=== PATIENT | male | born 1975 | race American Indian/Alaskan Native ===

== ENCOUNTER 2018-07-03 09:33 | Observation (INO) | payer SELFPAY ==
[2018-07-03 10:10] VITALS: BMI 23.8
--- NOTE | 2018-07-03 11:09 | ED PDOC ---
Lower Extremity Pain/Injury Time Seen by Provider: 07/03/18 09:54 Chief Complaint (Nursing): Lower Extremity Problem/Injury Chief Complaint (Provider): Lower Extremity Problem/Injury History Per: Patient History/Exam Limitations: no limitations Onset/Duration Of Symptoms: Persistent (x1 week), Worse Since (today) Current Symptoms Are (Timing): Still Present Additional Complaint(s): 42 year old male presents to ED with complaint of right ankle and foot pain that radiates up his knee. Patient is observed with cast on right foot placed 1 week ago at [facility]. He states he was waiting to see a specialist for follow up prior to arrival but developed increased pain during prolonged standing, thus, prompting ED visit. Patient has been taking Ibuprofen for relief but did not take any medications today. Otherwise, he denies numbness, tingling sensation, or other bodily injuries. PCP: none provided Past Medical History Reviewed: Historical Data, Nursing Documentation, Vital Signs Vital Signs: Last Vital Signs Temp 98.8 F 07/03/18 10:07 Pulse 84 07/03/18 10:07 Resp 17 07/03/18 10:07 BP 104/73 07/03/18 10:07 Pulse Ox 99 07/03/18 10:07 - Medical History PMH: No Chronic Diseases, Fractures (right ankle) - Family History Family History: States: Unknown Family Hx - Immunization History Hx Tetanus Toxoid Vaccination: No Hx Influenza Vaccination: No Hx Pneumococcal Vaccination: No - Home Medications Home Medications: Ambulatory Orders Medication Instructions Recorded Ibuprofen [Motrin] 600 mg PO Q6 #25 tab 06/27/18 oxyCODONE/Acetaminophen [Percocet 1 tab PO Q6 #10 tab 06/27/18 5/325 mg Tab] - Allergies Allergies/Adverse Reactions: Allergies Allergy/AdvReac Type Severity Reaction Status Date / Time No Known Allergies Allergy Verified 05/12/18 13:25 Review of Systems ROS Statement: Except As Marked, All Systems Reviewed And Found Negative Musculoskeletal: Positive for: Foot Pain (right sided radiating to knee, throbbing) Neurological: Negative for: Numbness (or tingling) Physical Exam - Reviewed Nursing Documentation Reviewed: Yes Vital Signs Reviewed: Yes - Physical Exam Appears: Positive for: Non-toxic, No Acute Distress Head Exam: Positive for: ATRAUMATIC, NORMAL INSPECTION, NORMOCEPHALIC Skin: Positive for: Normal Color Eye Exam: Positive for: Normal appearance, EOMI, PERRL Neck: Positive for: Normal Cardiovascular/Chest: Positive for: Regular Rate, Rhythm, Chest Non Tender Respiratory: Positive for: Normal Breath Sounds. Negative for: Respiratory Distress Pulses-Radial (L): 1+ Pulses-Radial (R): 1+ Back: Positive for: Normal Inspection. Negative for: L CVA Tenderness, R CVA Tenderness, Vertebral Tenderness Extremity: Positive for: Other (swelling ankle and foot; able to wiggle toes; pain on movement of ankle) Neurologic/Psych: Positive for: Alert, Oriented. Negative for: Motor/Sensory Deficits, Aphasia - ECG O2 Sat by Pulse Oximetry: 99 (RA) Pulse Ox Interpretation: Normal - Radiology X-Ray: Interpreted by Me, Viewed By Me X-Ray Interpretation: Fracture - Progress ED Course And Treament: 1300: Podiatry saw pt. Want admitted. They will consider monitoring, surgery, and checking compartment pressures. Pt. stable. No numbness, tingles. 1327: Spoke with Dr. Ibarra. Will admit. Medical Decision Making Medical Decision Making: Time: 1011 Initial Plan: * Toradol 15mg IM * Podiatry consult Scribe Attestation: Documented by Dee Dee Sharpe, acting as a scribe for Estrada Quiros MD. Provider Scribe Attestation: All medical record entries made by the Scribe were at my direction and personally dictated by me. I have reviewed the chart and agree that the record accurately reflects my personal performance of the history, physical exam, medical decision making, and the department course for this patient. I have also personally directed, reviewed, and agree with the discharge instructions and disposition. Disposition - Clinical Impression Clinical Impression: Ankle fracture - Patient ED Disposition Is Patient to be Admitted: Yes Counseled Patient/Family Regarding: Studies Performed, Diagnosis - Disposition Disposition Time: 13:28 Condition: FAIR - Pt Status Changed To: Hospital Disposition Of: Observation - POA Present On Arrival: Falls Or Trauma
--- NOTE | 2018-07-03 11:55 | CP.PCM.CON ---
History of Present Illness - History of Present Illness History of Present Illness: Podiatry consult note for attending Dr. Gutiérrez: 42 years old male patient, with no significant PMH seen and evaluated in the ED complaining of right ankle fracture. Patient Right LE was in posterior splint. Patient states that Patient states that last Monday he had right ankle fracture. Patient states that he went to [facility] ED where he was seen, X-ray and CT done for him which shows fracture to his right ankle. He states that splint was applied to his right LE. Patient states that he was discharged from the ED to follow up with Dr. Gutiérrez at the podiatry clinic at [facility]. He states that he was instructed to stay non weight bearing to his right lower extremity and also to elevate his RLE and apply ice to the fracture site and use crutches for moving. Patient states that he put weight on his RLE f or several times. He states that he has pain 10/10 at the fracture site with numbness extending from the anterior ankle down to the foot. Patient denies any recent f/n/v/sob. PMH: none PSH: none Allergies: NKFDA Social Hx: Review of Systems - Review of Systems Review of Systems: As per HPI - Constitutional Constitutional: As Per HPI Past Patient History - Infectious Disease Hx of Infectious Diseases: None - Past Social History Smoking Status: Never Smoked - MUSCULOSKELETAL/RHEUMATOLOGICAL Hx Fractures: Yes (right ankle) - GASTROINTESTINAL Hx Gastrointestinal Disorders: No - GENITOURINARY/GYNECOLOGICAL Hx Genitourinary Disorders: No - PSYCHIATRIC Hx Psychophysiologic Disorder: No Hx Substance Use: No - SURGICAL HISTORY Hx Surgeries: No - ANESTHESIA Hx Anesthesia: No Hx Anesthesia Reactions: No Hx Malignant Hyperthermia: No Meds Allergies/Adverse Reactions: Allergies Allergy/AdvReac Type Severity Reaction Status Date / Time No Known Allergies Allergy Verified 05/12/18 13:25 Physical Exam - Constitutional Appears: Well, Non-toxic, No Acute Distress - Head Exam Head Exam: ATRAUMATIC, NORMOCEPHALIC - Extremities Exam Additional comments: RLE focused exam: Vasc: DP 2/4, PT 1/4 due to edema, Cap refill <3 secs to all digits, Temp gradient warm to cool from proximal to distal. Moderate perimalleolar non pitting edema extending down to the foot. Eccyhymosis noted in the perimalleolar area. Neuro: Gross sensation is intact. Derm: No open lesions, no erythema, minimal edema noted perimalleolar, no clinical signs of infection. Moderate perimalleolar non pitting edema extending down to the foot. Eccyhymosis noted in the perimalleolar area. MSK:: Pain with ROM of the ankle, pain with palpation to the ankle joint and the perimalleolar area, no pain on palpation to the achilles tendon insertion, no pain on palpation to the base of the fifth metatarsal, no pain on compression of the calf. Muscle power couldn't be assessed due to pain and guarding. - Neurological Exam Neurological exam: Alert, Oriented x3 - Psychiatric Exam Psychiatric exam: Normal Affect, Normal Mood Results - Vital Signs Recent Vital Signs: Last Vital Signs Temp 98.8 F 07/03/18 10:07 Pulse 84 07/03/18 10:07 Resp 17 07/03/18 10:07 BP 104/73 07/03/18 10:07 Pulse Ox 99 07/03/18 11:18 Assessment & Plan - Assessment and Plan (Free Text) Assessment: 42 y/o male patient seen in the ED for right trimalleolar ankle fracture Plan: Patient seen and evaluated at the ED chart, labs and vitals discussed in detail with the attending, Dr. Gutiérrez Charts and vitals reviewed: Afebrile New R ankle X-rays ordered and reviewed; displaced trimalleolar fracture of the right ankle; no dislocation of the ankle noted. CT of the right lower extremity (06/27): displaced trimalleolar fracture, chip fracture of the posterior malleolus Well padded posterior splint with monge compression applied to the right lower extremity Patient instructed to stay NWB to the right lower extremity and to ambulate using crutches Patient to take pain medications prn Patient instructed to continue RICE protocol Patient expressed verbal understanding Patient to follow up in podiatry clinic in [facility] on Monday Thank you for the consult - Date & Time Date: 07/03/18 Time: 11:56
[2018-07-03] MEDS ORDERED: Sodium Chloride 0.9% 1,000 ML IV STA (13:00)
[2018-07-03] MEDS ORDERED: Morphine 4 MG/ML VIAL IV ONE (13:00)
[2018-07-03] MEDS ORDERED: Morphine 4 MG/ML VIAL ONE (13:28)
--- NOTE | 2018-07-03 13:59 | CP.PCM.HP ---
<Garrett Holley - Last Filed: 07/03/18 17:14> History of Present Illness - History of Present Illness History of Present Illness: 42 years old male patient, with no significant PMH seen and evaluated in the ED complaining of right ankle fracture. Patient Right LE was in posterior splint. Patient states that Patient states that last Monday he had right ankle fracture. Patient states that he went to [facility] ED where he was seen, X-ray and CT done for him which shows fracture to his right ankle. He states that splint was applied to his right LE. Patient states that he was discharged from the ED to follow up with Dr. Gutiérrez at the podiatry clinic at [facility]. He states that he was instructed to stay non weight bearing to his right lower extremity and also to elevate his RLE and apply ice to the fracture site and use crutches for moving. Patient states that he put weight on his RLE for several times. He states that he has pain 10/10 at the fracture site with nu mbness extending from the anterior ankle down to the foot. Patient denies any recent f/n/v/sob. PMH: none PSH: none Allergies: NKFDA Social Hx: Denies tobacco smoking, Use EtOH socially, Ex-weed smoker (last was 4 years ago) Present on Admission - Present on Admission Any Indicators Present on Admission: No History of DVT/PE: No History of Uncontrolled Diabetes: No Urinary Catheter: No Decubitus Ulcer Present: No History Surgical Site Infection Following: None Review of Systems - Review of Systems Review of Systems: As per HPI - Constitutional Constitutional: As Per HPI Past Patient History - Infectious Disease Hx of Infectious Diseases: None - Past Social History Smoking Status: Never Smoked - MUSCULOSKELETAL/RHEUMATOLOGICAL Hx Fractures: Yes (right ankle) - GASTROINTESTINAL Hx Gastrointestinal Disorders: No - GENITOURINARY/GYNECOLOGICAL Hx Genitourinary Disorders: No - PSYCHIATRIC Hx Psychophysiologic Disorder: No Hx Substance Use: No - SURGICAL HISTORY Hx Surgeries: No - ANESTHESIA Hx Anesthesia: No Hx Anesthesia Reactions: No Hx Malignant Hyperthermia: No Meds Allergies/Adverse Reactions: Allergies Allergy/AdvReac Type Severity Reaction Status Date / Time No Known Allergies Allergy Verified 05/12/18 13:25 Physical Exam - Constitutional Appears: Well, Non-toxic, No Acute Distress - Head Exam Head Exam: ATRAUMATIC, NORMOCEPHALIC - Eye Exam Eye Exam: EOMI, Normal appearance, PERRL Pupil Exam: NORMAL ACCOMODATION, PERRL - ENT Exam ENT Exam: Mucous Membranes Moist, Normal Exam - Neck Exam Neck exam: Positive for: Normal Inspection - Respiratory Exam Respiratory Exam: Clear to Auscultation Bilateral, NORMAL BREATHING PATTERN - Cardiovascular Exam Cardiovascular Exam: REGULAR RHYTHM - GI/Abdominal Exam GI & Abdominal Exam: Normal Bowel Sounds, Soft - Extremities Exam Extremities exam: Positive for: normal inspection Additional comments: As per podiatry exam: Moderate perimalleolar non pitting edema extending down to the foot. Eccyhymosis noted in the perimalleolar area. Pain and guarding on palpating the right perimallelar area - Back Exam Back exam: NORMAL INSPECTION - Neurological Exam Neurological exam: Alert, Oriented x3 - Psychiatric Exam Psychiatric exam: Normal Affect, Normal Mood - Skin Skin Exam: Dry, Intact, Normal Color, Warm Results - Vital Signs Recent Vital Signs: Last Vital Signs Temp 98.8 F 07/03/18 10:07 Pulse 84 07/03/18 10:07 Resp 17 07/03/18 10:07 BP 104/73 07/03/18 10:07 Pulse Ox 99 07/03/18 13:29 - Labs Result Diagrams: 07/03/18 14:09 07/03/18 14:09 Assessment & Plan - Assessment and Plan (Free Text) Assessment: 42 y/o M patient with no PMH admitted for Pain control 2ry to right ankletrimalleolar fracture Plan: Intractable pain 2ry to right trimalleolar fracture Acute R ankle X-rays ordered and reviewed; displaced trimalleolar fracture of the right ankle; no dislocation of the ankle noted. CT of the right lower extremity (06/27): displaced trimalleolar fracture, chip fracture of the posterior malleolus Closed reduction done by podiatry X-ray guided and under popliteal block given by the facing baster. Posterior AO splint applied to the R LE. Keep the posterior splint C/D/I Patient instructed to stay NWB to the right lower extremity and to ambulate using crutches Patient to take pain medications prn Patient instructed to continue RICE protocol Patient expressed verbal understanding Monitor R LE NV status Podiatry consulted; Reccs appreciated Compartment pressure measured by podiatry; Compartment syndrome excluded Patient will go to the OR on Monday for R ankle ORIF DVT prophylaxis SCD for now start Lovenox 40 mg SC tomorrow - Date & Time Date: 07/03/18 Time: 14:00 <Scar Ibarra - Last Filed: 07/04/18 09:23> Results - Vital Signs Recent Vital Signs: Last Vital Signs Temp 98.1 F 07/04/18 08:03 Pulse 72 07/04/18 08:03 Resp 20 07/04/18 08:03 BP 128/74 07/04/18 08:03 Pulse Ox 100 07/04/18 08:03 - Labs Result Diagrams: 07/04/18 05:30 07/04/18 05:30 Labs: Laboratory Results - last 24 hr 07/03/18 07/03/18 07/03/18 14:09 14:09 19:20 WBC 6.4 RBC 4.72 Hgb 13.0 Hct 40.3 MCV 85.4 MCH 27.5 MCHC 32.2 L RDW 14.1 Plt Count 223 MPV 8.9 Neut % (Auto) 61.0 Lymph % (Auto) 24.6 [place] % (Auto) 11.5 H Eos % (Auto) 2.4 Baso % (Auto) 0.5 Neut # (Auto) 3.9 Lymph # (Auto) 1.6 [place] # (Auto) 0.7 Eos # (Auto) 0.2 Baso # (Auto) 0.0 PT 12.7 INR 1.1 APTT 32.0 Sodium 138 Potassium 4.1 Chloride 105 Carbon Dioxide 24 Anion Gap 13 BUN 14 Creatinine 1.0 Est GFR ( Amer) > 60 Est GFR (Non-Af Amer) > 60 Random Glucose 76 Calcium 9.2 Total Bilirubin 1.3 AST 28 ALT 20 L Alkaline Phosphatase 72 Troponin I < 0.0120 Total Protein 7.6 Albumin 4.0 Globulin 3.6 Albumin/Globulin Ratio 1.1 07/04/18 07/04/18 05:30 05:30 WBC 5.0 RBC 4.36 L Hgb 12.0 Hct 36.5 MCV 83.7 MCH 27.5 MCHC 32.9 L RDW 13.8 Plt Count 216 MPV 8.7 Neut % (Auto) 59.6 Lymph % (Auto) 25.2 [place] % (Auto) 11.6 H Eos % (Auto) 2.9 Baso % (Auto) 0.7 Neut # (Auto) 3.0 Lymph # (Auto) 1.3 [place] # (Auto) 0.6 Eos # (Auto) 0.1 Baso # (Auto) 0.0 PT INR APTT Sodium 138 Potassium 4.2 Chloride 108 H Carbon Dioxide 26 Anion Gap 8 L BUN 16 Creatinine 1.0 Est GFR ( Amer) > 60 Est GFR (Non-Af Amer) > 60 Random Glucose 89 Calcium 8.4 Total Bilirubin AST ALT Alkaline Phosphatase Troponin I Total Protein Albumin Globulin Albumin/Globulin Ratio Attending/Attestation - Attestation I have personally seen and examined this patient.: Yes I have fully participated in the care of the patient.: Yes I have reviewed all pertinent clinical information: Yes Notes (Text): 07/04/18 09:22 Patient seen and examined with resident. Case discussed and agreed with assessment and plan of management.
[2018-07-03] MEDS ORDERED: Oxycodone/Acetaminophen 5/325 mg Tab PO PRN (14:18)
[2018-07-03 14:28] LABS: BASO % 0.5 % (0.0-2.0); EOS # 0.2 K/uL (0.0-0.7); EOS % 2.4 % (0.0-4.0); LYMPH # 1.6 K/uL (1.0-4.3); LYMPH % 24.6 % (20.0-40.0); MEAN CELL VOLUME 85.4 fl (80.0-94.0); MEAN CORPUSCULAR HEMOGLOBIN 27.5 pg (27.0-31.0); MEAN CORPUSCULAR HGB CONC 32.2 g/dL (33.0-37.0); MEAN PLATELET VOLUME 8.9 fl (7.2-11.7); MONO # 0.7 K/uL (0.0-0.8); MONO % 11.5 % (0.0-10.0); NEUT # 3.9 K/uL (1.8-7.0); RBC 4.72 Mil/uL (4.40-5.90); RED CELL DISTRIBUTION WIDTH 14.1 % (11.5-14.5); WHITE BLOOD COUNT 6.4 K/uL (4.8-10.8)
[2018-07-03 14:41] LABS: ALB/GLOB RATIO 1.1 (1.0-2.1); ALT/SGPT 20 U/L (21-72); AST/SGOT 28 U/L (17-59); BLOOD UREA NITROGEN 14 mg/dl (9-20); CALCIUM 9.2 mg/dL (8.4-10.2); GFR NON-AFRICAN AMERICAN > 60
--- NOTE | 2018-07-03 15:14 | RAD ---
Date of service: 07/03/2018 PROCEDURE: Right Ankle Radiographs. HISTORY: R ankle fracture COMPARISON: None available. FINDINGS: BONES: There is an oblique/diagonal fracture of the intra-articular fracture of the distal fibula with fracture of the medial and possibly the posterior malleolar. There disruption of the ankle mortise as well. Talar dome appears intact so far as can be seen JOINTS: Disruption ankle mortise. SOFT TISSUES: Moderate soft tissue swelling overlying the lateral and to a slightly lesser degree medial malleoli. OTHER FINDINGS: None. IMPRESSION: Oblique/diagonal intra-articular fracture distal fibula with fracture of the medial and possibly posterior malleoli. There disruption of the ankle mortise.
--- NOTE | 2018-07-03 15:19 | RAD ---
Date of service: 07/03/2018 PROCEDURE: Right Foot Radiographs. HISTORY: pain COMPARISON: None. FINDINGS: BONES: Fracture medial malleolus and distal fibula as reported on radiographic examination of ankle of the same date. No tarsal or metatarsal fracture identified. JOINTS: Normal. SOFT TISSUES: Normal. OTHER FINDINGS: None. IMPRESSION: Medial malleolar and distal fibular fractures. No additional abnormality.
[2018-07-03] MEDS ORDERED: Bupivacaine HCl 0.25% PF (30 ml) Inj ONE (15:38)
[2018-07-03] MEDS ORDERED: Midazolam 2 MG/2 ML VIAL ONE (15:39)
[2018-07-03] MEDS ORDERED: Povidone Iodine Topical 10% Sol ONE (16:24)
[2018-07-03] MEDS: Sodium Chloride 0.9% 1,000 ML IV SCH (17:03)
--- NOTE | 2018-07-03 17:09 | CP.PCM.CON ---
History of Present Illness - History of Present Illness History of Present Illness: Podiatry consult note: Dr. Gutiérrez: 42 year old male patient, with no PMHx, seen and evaluated for R ankle fracture. Patient states that last Monday he broke his ankle and went to [facility]. He states that he was told to follow up in the podiatry clinic with Dr. Gutiérrez at [facility]. Today he presents in a posterior splint and states that he is experiencing increased pain and numbness from the front of his leg down to his foot. He states that he has been using crutches however he occasionally has put his foot down with some weight. He denies N/V/F/SOB/CP. PMH: denies PSH: denies Allergies: NKDA Social Hx: denies tobacco use Review of Systems - Review of Systems Review of Systems: As per HPI Past Patient History - Infectious Disease Hx of Infectious Diseases: None - Past Social History Smoking Status: Never Smoked - MUSCULOSKELETAL/RHEUMATOLOGICAL Hx Fractures: Yes (right ankle) - GASTROINTESTINAL Hx Gastrointestinal Disorders: No - GENITOURINARY/GYNECOLOGICAL Hx Genitourinary Disorders: No - PSYCHIATRIC Hx Psychophysiologic Disorder: No Hx Substance Use: No - SURGICAL HISTORY Hx Surgeries: No - ANESTHESIA Hx Anesthesia: No Hx Anesthesia Reactions: No Hx Malignant Hyperthermia: No Meds Allergies/Adverse Reactions: Allergies Allergy/AdvReac Type Severity Reaction Status Date / Time No Known Allergies Allergy Verified 05/12/18 13:25 - Medications Medications: Current Medications Sodium Chloride (Sodium Chloride 0.9%) 1,000 mls @ 100 mls/hr IV .Q10H YI Ibuprofen (Motrin Tab) 600 mg PO Q6 YI Oxycodone/Acetaminophen (Percocet 5/325 Mg Tab) 1 tab PO Q4 PRN PRN Reason: Pain, moderate (4-7) Stop: 07/06/18 14:19 Physical Exam - Constitutional Appears: Non-toxic, No Acute Distress - Head Exam Head Exam: ATRAUMATIC, NORMOCEPHALIC - Extremities Exam Additional comments: RLE focused exam: Vasc: DP 2/4, PT 1/4 due to edema, Cap refill <3 secs to all digits, Temp gradient warm to cool from proximal to distal. +1 perimalleolar non pitting edema extending down to the foot. Neuro: Gross sensation is intact, protective sensation diminished Derm: No open lesions, no erythema, no clinical signs of infection. Mild ccyhymosis noted in the perimalleolar area. Ortho: Pain with ROM of the ankle, pain with palpation to the ankle joint and the perimalleolar area, no pain on palpation to the achilles tendon insertion, no pain on palpation to the base of the fifth metatarsal, no pain upon calf compression. Muscle power couldn't be assessed due to pain and guarding. - Neurological Exam Neurological exam: Alert, Oriented x3 - Psychiatric Exam Psychiatric exam: Normal Affect, Normal Mood Results - Vital Signs Recent Vital Signs: Last Vital Signs Temp 98.8 F 07/03/18 10:07 Pulse 84 07/03/18 10:07 Resp 17 07/03/18 10:07 BP 104/73 07/03/18 10:07 Pulse Ox 99 07/03/18 13:29 - Labs Result Diagrams: 07/03/18 14:09 07/03/18 14:09 Labs: Laboratory Results - last 24 hr 07/03/18 07/03/18 14:09 14:09 WBC 6.4 RBC 4.72 Hgb 13.0 Hct 40.3 MCV 85.4 MCH 27.5 MCHC 32.2 L RDW 14.1 Plt Count 223 MPV 8.9 Neut % (Auto) 61.0 Lymph % (Auto) 24.6 [place] % (Auto) 11.5 H Eos % (Auto) 2.4 Baso % (Auto) 0.5 Neut # (Auto) 3.9 Lymph # (Auto) 1.6 [place] # (Auto) 0.7 Eos # (Auto) 0.2 Baso # (Auto) 0.0 Sodium 138 Potassium 4.1 Chloride 105 Carbon Dioxide 24 Anion Gap 13 BUN 14 Creatinine 1.0 Est GFR ( Amer) > 60 Est GFR (Non-Af Amer) > 60 Random Glucose 76 Calcium 9.2 Total Bilirubin 1.3 AST 28 ALT 20 L Alkaline Phosphatase 72 Troponin I < 0.0120 Total Protein 7.6 Albumin 4.0 Globulin 3.6 Albumin/Globulin Ratio 1.1 Assessment & Plan - Assessment and Plan (Free Text) Assessment: 42 y/o male patient seen in the ED for right trimalleolar ankle fracture Plan: Patient seen and evaluated at the ED Chart and vitals discussed in detail with the attending, Dr. Gutiérrez New R ankle X-rays ordered and reviewed; displaced trimalleolar fracture of the right ankle; no dislocation of the ankle noted. CT of the right lower extremity (06/27): displaced trimalleolar fracture, chip fracture of the posterior malleolus Popliteal and femoral block administered by anesthesia Closed reduction of R ankle performed after consent was obtained Compartment pressures taken from anterior (9.0), lateral (10), superior posterior (22), and deep posterior (20) compartments taken; all values WNL Post reduction x-rays obtained Patient instructed to stay NWB to the right lower extremity and to ambulate using crutches Patient instructed to continue RICE protocol Patient expressed verbal understanding Patient plan for surgery on Monday at 7:45 am for right ankle ORIF Thank you for the consult - Date & Time Date: 07/03/18 Time: 17:11
--- NOTE | 2018-07-03 18:55 | CARD ---
APPROVED REPORT Date of service: 07/03/2018 EKG Measurement Heart [id number] <Conclusion> Normal sinus rhythm Normal ECG
--- NOTE | 2018-07-03 19:40 | PCM.ANESB3 ---
Femoral Nerve Block - Femoral Nerve Block Date of Procedure: 07/03/18 Anesthesiologist: Dr. Crump Pre-Procedure Diagnosis: Right ankle dislocation/pain Post-Procedure Diagnosis: Right ankle dislocation/pain Procedure Performed: Femoral Nerve Block Right - Procedure Femoral Nerve Block: The procedure was explained to the patient that it is for the post-operative pain management. Consent was obtained after a thorough discussion with the patient regarding the benefits and possible complications of local anesthetic block of the femoral nerve at the inguinal crease area. The patient was brought to the operating room and standard monitors were applied. Time-out was held with the circulating nurse to confirm the correct surgery and the appropriate block. After applying oxygen by nasal cannula and administering IV Sedation, patient was placed in supine position with fully extended lower extremities and the right groin exposed. The femoral artery was then carefully palpated. The ultrasound transducer was then applied to this area in the transverse plane and the femoral nerve was visualized lateral to the femoral artery and underneath the fascia iliaca. After thorough identification, the inguinal crease area was prepped with Betadine solution three times and 1 % Lidocaine was injected subcutaneously for topical anesthesia. At this point, a #21 gauge Stimuplex 4-inch needle was inserted immediately lateral to the femoral artery pulse at the inguinal crease and advanced perpendicularly. The needle was inserted to the ultrasound transducer in-plane towards the femoral nerve in a [id number] direction. Needle advancement was performed carefully under direct ultrasound visualization. Nerve stimulator was used and twitch of the quadriceps muscle was obtained at current of 0.3MA. After negative aspiration, 5cc of 0.25% Bupivacaine was injected and this was followed with 20cc of 0.25% Bupivacaine. Under ultrasound guidance the local anesthetics were observed spreading below fascia iliaca and around the femoral nerve. The needle was removed intact and sterile dressing was applied. The patient had stable vital signs, was conscious and in no apparent distress. The patient tolerated the femoral nerve block well with stable vital signs.
--- NOTE | 2018-07-03 19:44 | PCM.ANESB2 ---
Popliteal Nerve Block - Popliteal Nerve Block Date of Procedure: 07/03/18 Anesthesiologist: Dr. Crump Pre-Procedure Diagnosis: Right ankle dislocation/pain Post-Procedure Diagnosis: Right ankle dislocation/pain Procedure Performed: Popliteal Nerve Block Right - Procedure Popliteal Nerve Block: This procedure was explained to the patient that it is for post-operative pain management. Consent was obtained after a thorough discussion with the patient regarding the benefits and possible complications of local anesthetic block of the sciatic nerve at the popliteal level. The patient was brought to the operating room and standard monitors are applied. Time-out was held with the circulating nurse to confirm the correct surgery and the appropriate block. After applying oxygen by nasal cannula and administering IV Sedation, patient's operative leg was gently raised and supported and the groove in between the biceps femoris and vastus lateralis muscles was carefully palpated. The skin approximately 8cm above the popliteal crease was then marked. The ultrasound transducer was then applied to the posterior thigh approximately 8cm above the popliteal crease in the transverse plane and the sciatic nerve before its division was visualized lateral to the popliteal artery and in between the bicep femoris and semimembranosus/semitendinosus muscles. After identification, the lateral portion of the thigh was prepped with Chloraprep solution and Lidocaine 1% was injected subcutaneously for topical anesthesia. At this point, a # 21 gauge Stimuplex insulated 4 inch needle was inserted into pre-marked area and advanced in a perpendicular direction. The needle was inserted above the ultrasound transducer in-plane towards the sciatic nerve in a [id number] direction. Needle advancement was performed carefully under direct ultrasound visualization. Nerve stimulator was used and dorsiflexion of the right foot was elicited at a current of 0.3MA. After repeated negative aspiration, 5cc of 0.25% Bupivacaine was injected and this was flowed with 25cc of 0.25% Bupivacaine. Under ultrasound guidance the local anesthetics were observed surrounding sciatic nerve . The needle was removed intact and sterile dressing was applied. The patient tolerated the popliteal nerve block well with stable vital signs.
[2018-07-03 19:45] LABS: INR 1.1; PROTHROMBIN TIME 12.7 Seconds (9.8-13.1)
[2018-07-03 23:00] VITALS: RESP 20
[2018-07-04 06:58] LABS: BASO % 0.7 % (0.0-2.0); EOS # 0.1 K/uL (0.0-0.7); EOS % 2.9 % (0.0-4.0); LYMPH # 1.3 K/uL (1.0-4.3); LYMPH % 25.2 % (20.0-40.0); MEAN CELL VOLUME 83.7 fl (80.0-94.0); MEAN CORPUSCULAR HEMOGLOBIN 27.5 pg (27.0-31.0); MEAN CORPUSCULAR HGB CONC 32.9 g/dL (33.0-37.0); MEAN PLATELET VOLUME 8.7 fl (7.2-11.7); MONO # 0.6 K/uL (0.0-0.8); MONO % 11.6 % (0.0-10.0); NEUT % 59.6 % (50.0-75.0); RBC 4.36 Mil/uL (4.40-5.90); RED CELL DISTRIBUTION WIDTH 13.8 % (11.5-14.5)
[2018-07-04 07:05] LABS: BLOOD UREA NITROGEN 16 mg/dl (9-20); CALCIUM 8.4 mg/dL (8.4-10.2); GFR NON-AFRICAN AMERICAN > 60
[2018-07-04 08:04] VITALS: BP 128/74; PULSE 72; TEMP 98.1; O2SAT 100
[2018-07-04] MEDS ORDERED: Enoxaparin 40 mg Syringe SC SCH (09:00)
--- NOTE | 2018-07-04 09:31 | RAD ---
Date of service: 07/03/2018 PROCEDURE: Right Ankle Radiographs. HISTORY: pain COMPARISON: 07/03/2018 at 1211 hr FINDINGS: BONES: The anterior medial malleolar fracture appears less displaced as it did before. Fracture line separation here is 4 mm. The distal fibular spiral fracture has less angulation on the lateral view its fracture line separation is less than 2 mm. No significant appearing displacement now suggested. JOINTS: Mild background osteoarthrosis. Ankle mortise return to normal anatomical alignment. Talar dome appears intact. SOFT TISSUES: This diffuse soft tissue swelling ankle level OTHER FINDINGS: None. IMPRESSION: Post reduction of bio malleolar fracture as detailed above. Interval decreased displacement of fractured fragments as above.
[2018-07-04] MEDS: Sodium Chloride 0.9% 1,000 ML IV SCH (09:32)
--- NOTE | 2018-07-04 09:36 | RAD ---
Date of service: 07/04/2018 PROCEDURE: CHEST RADIOGRAPH, 1 VIEW HISTORY: preop COMPARISON: None available. FINDINGS: LUNGS: Clear. PLEURA: No pneumothorax or pleural fluid seen. CARDIOVASCULAR: No aortic atherosclerotic calcification present. Normal. OSSEOUS STRUCTURES: No significant abnormalities. VISUALIZED UPPER ABDOMEN: Normal. OTHER FINDINGS: None. IMPRESSION: No active disease.
--- NOTE | 2018-07-04 10:35 | CP.PCM.DIS ---
Provider - Provider Date of Admission: 07/03/18 13:26 Attending physician: Scar Ibarra MD Consults: 07/03/18 14:25 Podiatry Consult Stat Comment: Consulting Provider: Bruno Gutiérrez Consulting Physician: Bruno Gutiérrez Reason for Consult: right trimalleolar fracture Time Spent in preparation of Discharge (in minutes): 30 Hospital Course - Lab Results Lab Results: Most Recent Lab Values WBC 5.0 K/uL (4.8-10.8) 07/04/18 05:30 RBC 4.36 Mil/uL (4.40-5.90) L 07/04/18 05:30 Hgb 12.0 g/dL (12.0-18.0) 07/04/18 05:30 Hct 36.5 % (35.0-51.0) 07/04/18 05:30 MCV 83.7 fl (80.0-94.0) 07/04/18 05:30 MCH 27.5 pg (27.0-31.0) 07/04/18 05:30 MCHC 32.9 g/dL (33.0-37.0) L 07/04/18 05:30 RDW 13.8 % (11.5-14.5) 07/04/18 05:30 Plt Count 216 K/uL (130-400) 07/04/18 05:30 MPV 8.7 fl (7.2-11.7) 07/04/18 05:30 Neut % (Auto) 59.6 % (50.0-75.0) 07/04/18 05:30 Lymph % (Auto) 25.2 % (20.0-40.0) 07/04/18 05:30 [place] % (Auto) 11.6 % (0.0-10.0) H 07/04/18 05:30 Eos % (Auto) 2.9 % (0.0-4.0) 07/04/18 05:30 Baso % (Auto) 0.7 % (0.0-2.0) 07/04/18 05:30 Neut # (Auto) 3.0 K/uL (1.8-7.0) 07/04/18 05:30 Lymph # (Auto) 1.3 K/uL (1.0-4.3) 07/04/18 05:30 [place] # (Auto) 0.6 K/uL (0.0-0.8) 07/04/18 05:30 Eos # (Auto) 0.1 K/uL (0.0-0.7) 07/04/18 05:30 Baso # (Auto) 0.0 K/uL (0.0-0.2) 07/04/18 05:30 PT 12.7 Seconds (9.8-13.1) 07/03/18 19:20 INR 1.1 07/03/18 19:20 APTT 32.0 Seconds (25.6-37.1) 07/03/18 19:20 Sodium 138 mmol/l (132-148) 07/04/18 05:30 Potassium 4.2 MMOL/L (3.6-5.0) 07/04/18 05:30 Chloride 108 mmol/L (98-107) H 07/04/18 05:30 Carbon Dioxide 26 mmol/L (22-30) 07/04/18 05:30 Anion Gap 8 (10-20) L 07/04/18 05:30 BUN 16 mg/dl (9-20) 07/04/18 05:30 Creatinine 1.0 mg/dl (0.8-1.5) 07/04/18 05:30 Est GFR ( Amer) > 60 07/04/18 05:30 Est GFR (Non-Af Amer) > 60 07/04/18 05:30 Random Glucose 89 mg/dL (75-110) 07/04/18 05:30 Calcium 8.4 mg/dL (8.4-10.2) 07/04/18 05:30 Total Bilirubin 1.3 mg/dl (0.2-1.3) 07/03/18 14:09 AST 28 U/L (17-59) 07/03/18 14:09 ALT 20 U/L (21-72) L 07/03/18 14:09 Alkaline Phosphatase 72 U/L (38-126) 07/03/18 14:09 Troponin I < 0.0120 ng/mL (0.00-0.120) 07/03/18 14:09 Total Protein 7.6 G/DL (6.3-8.2) 07/03/18 14:09 Albumin 4.0 g/dL (3.5-5.0) 07/03/18 14:09 Globulin 3.6 gm/dL (2.2-3.9) 07/03/18 14:09 Albumin/Globulin Ratio 1.1 (1.0-2.1) 07/03/18 14:09 - Hospital Course Hospital Course: 42 y/o M patient with no PMH admitted for Pain control 2ry to right ankle trimalleolar fracture. Patient had femoral and popliteal block in the ED and has ankle closed reductionby podiary. Patient was on (Percocet 325/5mg, toradol and ibuprofen) for pain control and Lovenox 40 mg SC for DVT prophylaxis. During his hospital Stay patient didn't have any acute events. Patient discharged home and he is scheduled for right ankle ORIF this coming monday (07/06/2018) at 7:45 am. Assessment: 42 y/o M patient with no PMH admitted for Pain control 2ry to right ankle trimalleolar fracture Plan: Intractable pain 2ry to right trimalleolar fracture Acute R ankle X-rays ordered and reviewed; displaced trimalleolar fracture of the right ankle; no dislocation of the ankle noted. CT of the right lower extremity (06/27): displaced trimalleolar fracture, chip fracture of the posterior malleolus Closed reduction done by podiatry X-ray guided and under popliteal block given by the production finisher. Posterior AO splint applied to the R LE. Patient instructed to keep the posterior splint C/D/I Patient instructed to stay NWB to the right lower extremity and to ambulate using crutches Patient to use pain medications PRN as instructed. Patient instructed to continue RICE protocol. Patient expressed verbal understanding Podiatry consulted; Reccs appreciated Compartment pressure measured by podiatry; Compartment syndrome excluded Patient is scheduled for right ankle ORIF this coming monday (07/06/2018) at 7:45 am. Labs, chest x-ray and EKG reviewed. Patient is low risk patient for surgery. Discharge Exam - Head Exam Head Exam: ATRAUMATIC, NORMOCEPHALIC - Eye Exam Eye Exam: EOMI, Normal appearance, PERRL Pupil Exam: NORMAL ACCOMODATION, PERRL - ENT Exam ENT Exam: Mucous Membranes Moist - Neck Exam Neck exam: Full Rom - Respiratory Exam Respiratory Exam: Clear to PA & Lateral, NORMAL BREATHING PATTERN, UNREMARKABLE - Cardiovascular Exam Cardiovascular Exam: REGULAR RHYTHM, +S1, +S2 - GI/Abdominal Exam GI & Abdominal Exam: Normal Bowel Sounds, Unremarkable - Extremities Exam Extremities exam: normal capillary refill Additional comments: RLE is in a posterior splint. - Back Exam Back exam: NORMAL INSPECTION - Neurological Exam Neurological exam: Alert, Oriented x3 - Psychiatric Exam Psychiatric exam: Normal Affect, Normal Mood - Skin Skin Exam: Dry, Intact, Normal Color, Warm Discharge Plan - Follow Up Plan Condition: FAIR Disposition: HOME/ ROUTINE Instructions: How to Use Crutches, Ankle Fracture (DC) Additional Instructions: nothing to eat or drink after midnight for surgery on mondayjuly 06, please arrive at 6am to same day surgery. Referrals: Bruno Gutiérrez MD [Staff Provider] -
== END 2018-07-04 12:00 | disposition home or self-care (01) ==
LOC: H.ER 09:33 → H.ERHOLD 13:26 → H.MEDSURG1 18:40
DX: S82.851A Displaced trimalleolar fracture of right lower leg, initial encounter for closed fracture (principal); W18.30XA Fall on same level, unspecified, initial encounter; Y93.9 Activity, unspecified; Y92.9 Unspecified place or not applicable; Y99.9 Unspecified external cause status; G89.28 Other chronic postprocedural pain; M25.571 Pain in right ankle and joints of right foot
CPT/HCPCS: 36415; 64447; 64450; 71045; 73610; 73630; 80048; 80053; 84484; 85025; 85610; 85730; 93005; 96360; 96361; 96372; 96374; 97161; 97530; 99285; G0378; G8978; G8979; J1650; J1885; J2270; J7030

== ENCOUNTER 2018-07-06 06:24 | Observation (INO) | payer SELFPAY ==
--- NOTE | 2018-07-06 06:54 | CP.SDSHP ---
Same Day Surgery H & P - History Proposed Procedure: Right ankle ORIF Pre-Op Diagnosis: Right trimalleolar fracture - Previous Medical/Surgical History Pain: 2.Mild Pain Previous Surgical History: Denies - Allergies Allergies: Allergies No Known Allergies Allergy (Verified 07/06/18 06:52) - Physical Exam Mental Status: Alert & Oriented x3 Neuro: WNL Heart: WNL Lungs: WNL GI: WNL - Impression Pt. Evaluated Today:Candidate for Anesthesia & Procedure: Yes - Date & Time Date: 07/06/18 Time: 06:54 Short Stay Discharge - Short Stay Discharge Admitting Diagnosis/Reason for Visit: [id number] Disposition: HOME/ ROUTINE Additional Instructions (Diet, Activity): -Patient in good/stable condition for discharge home -Pt to resume medications per medical reconciliation -Resume regular diet -Please keep dressing clean, dry, & intact to surgical site -Use plastic bag over bandage for showering -Wear post op shoe at all times when ambulating -Call clinic if you see signs of infection (redness, swelling, malodor) -Please make an appointment to see Dr. Gutiérrez in office/clinic within 1 week for post-op check Progress Note/Discharge Note with Instructions: - Patient evaluated bedside in recovery s/p R ankle ORIF - After surgical procedure patient in NAD - (+) Void, (+) Appetite - Capillary refill time <3s and NVS intact. - Patient denies complaints at this time. - Post operative instructions and plan of care explained to patient at length. - Patient. acknowledges verbal understanding. - Patient stable for DC per podiatric surgery
--- NOTE | 2018-07-06 06:56 | CP.PCM.PN ---
Subjective - Date & Time of Evaluation Date of Evaluation: 07/06/18 Time of Evaluation: 06:56 - Subjective Subjective: Podiatry Progress Note: Dr. Gutiérrez 42 year old male patient with no pertinent PMHx, seen and evaluated in [facility] for R ankle ORIF. Patient states that he has been NPO since yesterday at 11:00 pm. Patient is aware that he is going to surgery for his right ankle fracture, the planned procedure, as well as the post operative course. He reports decreased pain to the right ankle since Monday. He denies any N/V/F/SOB/CP. Objective - Constitutional Appears: Well, Non-toxic, No Acute Distress - Head Exam Head Exam: ATRAUMATIC, NORMOCEPHALIC - Extremities Exam Additional comments: Right posterior splint C/D/I Patient able to wiggle toes NVS intact CFT < 3 seconds to all 5 digits - Neurological Exam Neurological Exam: Alert, Awake, Oriented x3 - Psychiatric Exam Psychiatric exam: Normal Affect, Normal Mood Assessment and Plan - Assessment and Plan (Free Text) Assessment: 42 year old male patient with no pertinent PMHx, seen and evaluated in [facility] for R ankle ORIF. Plan: Pt was seen and examined in [facility] Pt NPO status was confirmed All pre-op testing and clearance in chart Pt has exhausted all conservative treatment at this time and is opting for surgical intervention Pt was explained procedure and post-operative course All pt's questions were answered to satisfaction No guarantees were made Pt understands all risks, benefits and complications of procedure Pt will follow-up with Dr. Gutiérrez within 1 week of surgery
[2018-07-06 06:57] VITALS: BMI 35.4
[2018-07-06] MEDS ORDERED: Lactated Ringer's 1,000 ML IV ONE ×2 (07:15→11:15)
[2018-07-06] MEDS ORDERED: Propofol 10 mg/ml Inj (20 ML) ONE ×2 (07:25→08:50)
[2018-07-06] MEDS ORDERED: Midazolam 2 MG/2 ML VIAL ONE (07:25)
[2018-07-06] MEDS ORDERED: Bupivacaine 0.5% Inj(30mL) ONE (07:28)
[2018-07-06] MEDS ORDERED: Lidocaine 1% Inj (20ml) ONE (07:28)
[2018-07-06] MEDS ORDERED: cefOXitin IV 1 gm in Dextrose 2 GM/100 ML BAG IVPB ONE (07:29)
[2018-07-06] MEDS ORDERED: Lidocaine 2% MPF (5 ml) Inj ONE (07:29)
[2018-07-06] MEDS ORDERED: Ropivacaine 0.5% 30ML IV ONE (07:41)
[2018-07-06] MEDS ORDERED: Lidocaine 2% Jelly (5 ml) TOP ONE (07:48)
[2018-07-06] MEDS ORDERED: HYDROmorphone 0.5 mg/0.5 ml ISec IVP PRN (11:34)
--- NOTE | 2018-07-06 11:34 | CP.PCM.HP ---
<Garrett Holley - Last Filed: 07/06/18 12:32> History of Present Illness - History of Present Illness History of Present Illness: 42 years old male patient, with no significant PMH seen and evaluated in the PACU S/P ORIF of R ankle trimalleolar fracture. Patient Right LE was in posterior splint. Patient was sleeping comfortably and NAD. Patient Denies any pain currently. He states that his RLE is numb. Patient denies any f/n/v/sob. PMH: none PSH: none Allergies: NKFDA Social Hx: Denies tobacco smoking, Use EtOH socially, Ex-weed smoker (last was 4 years ago) Present on Admission - Present on Admission Any Indicators Present on Admission: No History of DVT/PE: No History of Uncontrolled Diabetes: No Urinary Catheter: No Decubitus Ulcer Present: No Review of Systems - Review of Systems Review of Systems: As Per HPI - Constitutional Constitutional: As Per HPI Past Patient History - Infectious Disease Hx of Infectious Diseases: None - Past Medical History & Family History Past Medical History?: No - Past Social History Smoking Status: Never Smoked - CARDIAC Hx Cardiac Disorders: No - PULMONARY Hx Respiratory Disorders: No - NEUROLOGICAL Hx Neurological Disorder: No - HEENT Hx HEENT Problems: No - RENAL Hx Chronic Kidney Disease: No - ENDOCRINE/METABOLIC Hx Endocrine Disorders: No - HEMATOLOGICAL/ONCOLOGICAL Hx Blood Disorders: No Hx AIDS: No Hx Human Immunodeficiency Virus (HIV): No - INTEGUMENTARY Hx Dermatological Problems: No - MUSCULOSKELETAL/RHEUMATOLOGICAL Hx Musculoskeletal Disorders: Yes Hx Falls: Yes Hx Fractures: Yes (right ankle) - GASTROINTESTINAL Hx Gastrointestinal Disorders: No - GENITOURINARY/GYNECOLOGICAL Hx Genitourinary Disorders: No - PSYCHIATRIC Hx Psychophysiologic Disorder: No Hx Substance Use: No - SURGICAL HISTORY Hx Surgeries: No - ANESTHESIA Hx Anesthesia: Yes Hx Anesthesia Reactions: No Hx Malignant Hyperthermia: No Has any member of the family had a problem w/ anesthesia?: No Meds Allergies/Adverse Reactions: Allergies Allergy/AdvReac Type Severity Reaction Status Date / Time No Known Allergies Allergy Verified 07/06/18 06:52 Physical Exam - Constitutional Appears: Well, Non-toxic, No Acute Distress - Head Exam Head Exam: ATRAUMATIC, NORMOCEPHALIC - Eye Exam Eye Exam: EOMI, Normal appearance, PERRL Pupil Exam: NORMAL ACCOMODATION, PERRL - ENT Exam ENT Exam: Mucous Membranes Moist, Normal Exam - Neck Exam Neck exam: Positive for: Normal Inspection - Respiratory Exam Respiratory Exam: Clear to Auscultation Bilateral, NORMAL BREATHING PATTERN - Cardiovascular Exam Cardiovascular Exam: REGULAR RHYTHM, +S1, +S2 - GI/Abdominal Exam GI & Abdominal Exam: Normal Bowel Sounds, Soft - Extremities Exam Extremities exam: Positive for: normal capillary refill Additional comments: RLE is in posterior splint - Back Exam Back exam: NORMAL INSPECTION - Neurological Exam Neurological exam: Alert, Oriented x3 - Psychiatric Exam Psychiatric exam: Normal Affect, Normal Mood - Skin Skin Exam: Dry, Intact, Normal Color, Warm Results - Vital Signs Recent Vital Signs: Last Vital Signs Temp 98.2 F 07/06/18 07:04 Pulse 77 07/06/18 07:12 Resp 18 07/06/18 07:04 BP 117/67 07/06/18 07:04 Pulse Ox 98 07/06/18 07:04 Assessment & Plan - Assessment and Plan (Free Text) Assessment: 42 y/o M patient with no PMH admitted for Pain control S/P ORIF of R ankle trimalleolar fracture. Plan: Pain 2ry to ORIF of right trimalleolar fracture Acute Posterior splint applied to the R LE. Keep the posterior splint C/D/I Patient instructed to stay NWB to the right lower extremity and to ambulate using crutches Patient to take pain medications prn Continue RICE protocol Patient expressed verbal understanding Monitor R LE NV status Podiatry onboard; Reccs appreciated Patient did R ankle ORIF today. Patient is admitted for observation and pain control. Keflex 500 mg tablet Q8. DVT prophylaxis SCD for now start Lovenox 40 mg SC tomorrow - Date & Time Date: 07/06/18 Time: 11:36 <Scar Ibarra D - Last Filed: 07/06/18 12:54> Results - Vital Signs Recent Vital Signs: Last Vital Signs Temp 97.2 F L 07/06/18 11:26 Pulse 73 07/06/18 12:45 Resp 18 07/06/18 12:45 BP 134/72 07/06/18 12:45 Pulse Ox 100 07/06/18 12:45 Attending/Attestation - Attestation I have personally seen and examined this patient.: Yes I have fully participated in the care of the patient.: Yes I have reviewed all pertinent clinical information: Yes Notes (Text): 07/06/18 12:53 Patient seen and examined with resident. Case discussed and agreed with assessment and plan.
--- NOTE | 2018-07-06 11:35 | PCM.SURG1 ---
Surgeon's Initial Post Op Note - Surgeon's Notes Surgeon: Dr. Gutiérrez DPM Systems Integrator: Dr. María Linton PGY3, Dr. Hali Ramirez PGY3, Dr. Flory Kennedy PGY3 Anesthesia Administered By: Dr. Crump Pre-Operative Diagnosis: Right trimalleolar fracture Operative Findings: See dictation. I: Post operative popliteal block and saphenous block. M: Carlton, 3-0 vicryl, 2-0 vicryl Post-Operative Diagnosis: Same Operation Performed: Right ankle ORIF Specimen/Specimens Removed: none Estimated Blood Loss: EBL {In ML}: 5 Blood Products Given: N/A Drains Used: No Drains Post-Op Condition: Good Date of Surgery/Procedure: 07/06/18 Time of Surgery/Procedure: 11:35
[2018-07-06] MEDS ORDERED: Oxycodone/Acetaminophen 5/325 mg Tab PO PRN ×2 (11:38)
--- NOTE | 2018-07-06 11:39 | PCM.ANESB3 ---
Femoral Nerve Block - Femoral Nerve Block Date of Procedure: 07/06/18 Anesthesiologist: Dr. Crump Pre-Procedure Diagnosis: S/P ORIF right ankle fracture Post-Procedure Diagnosis: S/P ORIF right ankle fracture Procedure Performed: Femoral Nerve Block Right - Procedure Femoral Nerve Block: The procedure was explained to the patient that it is for the post-operative pain management. Consent was obtained after a thorough discussion with the patient regarding the benefits and possible complications of local anesthetic block of the femoral nerve at the inguinal crease area. The patient was brought to the operating room and standard monitors were applied. Time-out was held with the circulating nurse to confirm the correct surgery and the appropriate block. After the surgery while still under general anesthesia, patient was placed in supine position with fully extended lower extremities and the right groin exposed. The femoral artery was then carefully palpated. The ultrasound transducer was then applied to this area in the transverse plane and the femoral nerve was visualized lateral to the femoral artery and underneath the fascia iliaca. After thorough identification, the inguinal crease area was prepped with Chloraprep solution. At this point, a #20 gauge Stimuplex 4-inch needle was inserted immediately lateral to the femoral artery pulse at the inguinal crease and advanced perpendicularly. The needle was inserted to the ultrasound transducer in-plane towards the femoral nerve in a [id number] direction. Needle advancement was performed carefully under direct ultrasound visualization. Nerve stimulator was used and twitch of the quadriceps muscle was obtained at current of 0.3MA. After negative aspiration, 5cc of 0.5% Ropivacaine was injected and this was followed with 5cc of 0.5% Ropivacaine. Under ultrasound guidance the local anesthetics were observed spreading below fascia iliaca and around the femoral nerve. The needle was removed intact and sterile dressing was applied. The patient had stable vital signs, was conscious and in no apparent distress. The patient tolerated the femoral nerve block well with stable vital signs and was awaken from anesthesia. Then transported to PACU in stable condition
--- NOTE | 2018-07-06 11:59 | PCM.ANESB2 ---
Popliteal Nerve Block - Popliteal Nerve Block Date of Procedure: 07/06/18 Anesthesiologist: Dr. Crump Pre-Procedure Diagnosis: S/P ORIF right ankle fracture Post-Procedure Diagnosis: S/P ORIF right ankle fracture Procedure Performed: Popliteal Nerve Block Right - Procedure Popliteal Nerve Block: This procedure was explained to the patient that it is for post-operative pain management. Consent was obtained after a thorough discussion with the patient regarding the benefits and possible complications of local anesthetic block of the sciatic nerve at the popliteal level. The patient was brought to the operating room and standard monitors are applied. Time-out was held with the circulating nurse to confirm the correct surgery and the appropriate block. After the surgery while still under general anesthesia, patient's operative leg was gently raised and supported and the groove in between the biceps femoris and vastus lateralis muscles was carefully palpated. The skin approximately 8cm above the popliteal crease was then marked. The ultrasound transducer was then applied to the posterior thigh approximately 8cm above the popliteal crease in the transverse plane and the sciatic nerve before its division was visualized lateral to the popliteal artery and in between the bicep femoris and semimembranosus/semitendinosus muscles. After identification, the lateral portion of the thigh was prepped with Chloraprep solution. At this point, a # 20 gauge Stimuplex insulated 4 inch needle was inserted into pre-marked area and advanced in a perpendicular direction. The needle was inserted above the ultrasound transducer in-plane towards the sciatic nerve in a [id number] direction. Needle advancement was performed carefully under direct ultrasound visualization. Nerve stimulator was used and dorsiflexion of the right foot was elicited at a current of 0.3 MA. After repeated negative a spiration, 5cc of 0.5% Ropivacaine was injected and this was flowed with 15cc of 0.5% Ropivacaine. Under ultrasound guidance the local anesthetics were observed surrounding sciatic nerve . The needle was removed intact and sterile dressing was applied. The patient tolerated the popliteal nerve block well with stable vital signs and was awaken from anesthesia.
--- NOTE | 2018-07-06 12:40 | RAD ---
Date of service: 07/06/2018 PROCEDURE: Right Ankle Radiographs. HISTORY: s/p right ankle ORIF COMPARISON: 07/03/2018 FINDINGS: BONES: Status post ORIF medial malleolar and distal fibular fractures. Fracture fragments are in near anatomic alignment. Plate and screw fixation along the lateral aspect of distal fibula. There is a screw traversing the medial malleolus obliquely. No other fracture identified. JOINTS: Normal. No osteoarthritis. Ankle mortise maintained. Talar dome intact SOFT TISSUES: Normal. OTHER FINDINGS: None. IMPRESSION: Status post ORIF distal fibular and medial malleolar fractures
[2018-07-06] MEDS: Lactated Ringer's 1,000 ML IV SCH (17:42)
[2018-07-06 19:47] VITALS: RESP 20
[2018-07-06] MEDS: Morphine 4 MG/ML VIAL IVP PRN (23:24)
[2018-07-06] MEDS ORDERED: Morphine 4 MG/ML VIAL IVP PRN (23:30)
[2018-07-07] MEDS: Morphine 4 MG/ML VIAL IVP PRN ×2 (03:51→08:35)
[2018-07-07] MEDS: Lactated Ringer's 1,000 ML IV SCH ×2 (03:56→09:02)
[2018-07-07 08:44] VITALS: BP 130/81; PULSE 83; TEMP 98.5; O2SAT 97
[2018-07-07] MEDS ORDERED: Enoxaparin 40 mg Syringe SC SCH ×2 (09:00)
--- NOTE | 2018-07-07 14:11 | CP.PCM.DIS ---
Provider - Provider Date of Admission: 07/06/18 12:11 Attending physician: Scar Ibarra MD Time Spent in preparation of Discharge (in minutes): 35 Diagnosis - Discharge Diagnosis (1) Ankle fracture, right Status: Resolved (2) Ankle pain, right Status: Resolved Hospital Course - Hospital Course Hospital Course: 42 years old male patient, with hx of R trimalleolar fracture S/P ORIF on 07/06/18, admitted for management of intractable ankle pain. He was treated with a popliteal and femoral nerve block administered by pain management. His pain was well controlled overnight. Pt was evalauted this morning with Dr. Pittman at the bedside and he reported that his pain was well control with oral analgesics. Podiatry evaluated patient and he was advised to follow up in Podiatry clinic on 07/11. He was discharged on pain medication, Keflex, Lovenox, Tylenol, and Colace. Pt is able to ambulate safely with crutches which were provided to him. Discharge Exam - Head Exam Head Exam: ATRAUMATIC, NORMOCEPHALIC - Eye Exam Eye Exam: Normal appearance - ENT Exam ENT Exam: Mucous Membranes Moist - Respiratory Exam Respiratory Exam: Clear to PA & Lateral. absent: Rales, Wheezes - Cardiovascular Exam Cardiovascular Exam: REGULAR RHYTHM - Extremities Exam Additional comments: Right ankle wrapped in cast, toes visible, sensory and motor in tact, warm with good capillary refill. Popliteal pule of R. LE palpable. - Neurological Exam Neurological exam: Alert, Oriented x3 - Psychiatric Exam Psychiatric exam: Normal Affect - Skin Skin Exam: Normal Color Discharge Plan - Discharge Medications Prescriptions: Acetaminophen [Tylenol 325mg tab] 650 mg PO Q6 PRN 30 Days tab PRN Reason: Pain, Mild (1-3) Cephalexin [Keflex] 500 mg PO Q8 7 Days #21 cap Docusate Sodium [Colace] 100 mg PO BID 5 Days #10 capsule Enoxaparin [Lovenox] 40 mg SC DAILY #10 syr oxyCODONE/Acetaminophen [Percocet 5/325 mg Tab] 1 tab PO PRN PRN #40 tab PRN Reason: Pain, Severe (8-10) - Follow Up Plan Condition: GOOD Disposition: HOME/ ROUTINE Instructions: Ankle Fracture (DC), Enoxaparin, How to Give a Blood Thinner Shot Additional Instructions: -Patient in good/stable condition for discharge home -Pt to resume medications per medical reconciliation -Resume regular diet -Please keep dressing clean, dry, & intact to surgical site -Use plastic bag over bandage for showering -Wear post op shoe at all times when ambulating -Call clinic if you see signs of infection (redness, swelling, malodor) -Please make an appointment to see Dr. Gutiérrez in office/clinic within 1 week for post-op check -Follow up with Dr. Gutiérrez on 07/11, call for appointment -Follow up with PMD at [facility] within 1 week, Call for appointment
--- NOTE | 2018-07-07 19:13 | OP ---
PROCEDURE DATE: 07/06/2018 SURGEON: Bruno Gutiérrez DPM LACING STRING CUTTER: María Linton DPM, PGY-3; Dr. Hali Ramirez DPM, PGY-3; Flory Kennedy DPM, PGY-3 GIFTS OFFICER: Peter Crump MD ANESTHESIA: General with regional block popliteal and femoral. PREOPERATIVE DIAGNOSIS: Displaced trimalleolar fracture of right lower extremity. POSTOPERATIVE DIAGNOSIS: Displaced trimalleolar fracture of right lower extremity. PROCEDURE PERFORMED: Open reduction with internal fixation, displaced right lower extremity trimalleolar fracture using plates and screws. INDICATION: The patient is a 42-year-old male with the above mentioned diagnosis. Of note, the patient presents to the [facility] Emergency Department on 06/27/2018, after suffering a trip fall from the terrace. The patient was diagnosed with the trimalleolar ankle fracture at this time and was placed in a posterior splint. On 07/04/2018, the patient admits to putting weight on the right foot while at the referring doctor's office and then proceeded to the [facility] with increased pain and swelling to the right lower extremity. The patient was given a right lower extremity local anesthesia and a closed reduction of the right lower extremity fracture was performed at this time, and the patient was placed in AO splint, kept for observation and then discharged home. Now on 07/06/2018, the patient presented for surgical correction of right lower extremity fracture. The patient has now exhausted all conservative treatment at this time and now required surgical intervention. The patient signed the consent after careful explanation of all risks, benefits, complications, and alternatives for the surgical procedures. No guarantees were given nor implied. 2 g of Ancef IV was given to the patient, n.p.o. status was confirmed prior to bringing the patient to the operating room. PREPARATION: The patient was brought to the operating room and placed on the operating table in a supine position. A well-padded thigh tourniquet was placed to the patient's right thigh with plenty of Webril cast padding. After induction of IV sedation, the right lower extremity was then prepped and draped in the usual sterile manner and Esmarch was utilized to exsanguinate the patient's right lower extremity. A pneumatic thigh tourniquet was then inflated to 350 mmHg and the procedure began. PROCEDURE #1: Open reduction with internal fixation displaced oblique fibula fracture using plates and screws. Our attention was now directed to the lateral aspect of the patient's right fibula where an approximately 10 cm linear longitudinal incision was made directly over the lateral fibula taking care to avoid all vital neurovascular structures. All bleeders were cauterized as necessary as they were encountered. Next, a combination of sharp and blunt tissue dissection was used to deepen the incision down to the level of the periosteal tissue overlying the fibula. Using a #15 blade, a sharp linear incision was made directly over the lateral aspect of the fibula overlying the periosteum. A edwards elevator was utilized to free the periosteal tissue medially and laterally thus exposing the fracture fragment entered in the operative site. The surgical site was flushed with copious amounts of sterile normal saline solutions for the patient to remove any hematogenous tissue and any fracture fragment debris from the lateral fibula. At this time, a bone reduction forceps was utilized to apply traction to the distal fracture fragment and to reduce the distal fibular fracture fragment into an anatomical position with the proximal aspect of the fibula. At this time, the deformity appeared to be lengthened and positioned out of any valgus or varus rotation. At this time, two 2.0 K wires were driven across the fracture site in perpendicular fashion in order to temporarily fixate the fracture fragments. At this time, a Synthes 4 hole fibula plate was then chosen as the method of reduction for the fracture fragment of the distal fibula. First, the 2-0 drill bit was utilized to drill for the 4 distal locking screws in the plate measuring 2.7 mm locking 16mm x2. 2.7 mm locking x 8 and 2.7 mm locking x 14 mm; all Synthes cortical screws. Next, a 2.5 drill bit was utilized to make drill holes in the perpendicular fashion in the oblong lag screw hole of the plate proximally and using standard AO principles and techniques, a 3.5 cortical x 16 mm screw was placed proximally and a 3.5 cortical x 20 mm screw was placed distally. At this time, there appeared to be excellent contour of the plate to bone interface with external reduction of the fracture fragment in anatomical position at this time. Lastly, a 2.7 mm fully threaded locking screw x 14 mm was placed in a proximal hole just proximal to the 3.5 cortical screws. The surgical site was flushed with copious amounts of sterile normal saline solution. The periosteal tissues were reapproximated using 2-0 Vicryl. The deep subcutaneous tissue was reapproximated using 3-0 Vicryl. The subcuticular tissues were reapproximated using 4-0 Vicryl and the skin edges were reapproximated using skin freya. PROCEDURE #2: Open reduction with internal fixation, displaced medial malleolar fracture. Our attention was then directed to the medial malleolus using an 18-gauge and under fluoroscopic imaging, the tip of the medial malleolus was identified. Using a #15 blade, a curvilinear insertion was made directly over the medial malleolus measuring approximately 5 cm in length. Care was taken to avoid all vital neurovascular structures and bleeders were cauterized as necessary. The posterior tibial tendon was then encountered and then retracted plantarly to avoid any drainage to the tendon. The fracture site was now encountered and now a #15 blade was utilized to make a sharp linear incision directly over the fracture fragment of the medial malleolus. Next, the elevator was utilized to free this periosteum medially and laterally, thus exposing the fracture fragment into the fracture site. Surgical site was flushed with copious amounts of normal sterile saline solution to remove any hematogenous tissue or fracture fragment debris. At this time, it appeared that the fracture fragment was only displaced in an anterior fashion. Next, using two 2.0 K wires and a bone reduction forceps, the medial malleolus was reduced into anatomic position at this time. Next, using standard AO principles and technique, a 4.5 cm cannulated partially-threaded screw was then inserted into its plate across the fracture fragment site of the medial malleolus measuring 4.5 x 48 mm cannulated Synthes screw. The surgical site was flushed with copious amounts of sterile normal saline solution. The periosteal tissue was reapproximated with 2-0 Vicryl, subcutaneous tissue reapproximated using 3-0 Vicryl, subcuticular tissue reapproximated using 4-0 Vicryl, and skin edges were reapproximated using skin freya. Dressings included saline soaked gauze, 4 x 4s, Perry, Kerlix and a well padded posterior AO splint was then applied to the patient's right lower extremity with the foot placed in a neutral dorsiflexed position with plenty of Webril cast padding was applied. POSTOPERATIVE CONDITION: The patient tolerated the procedure and anesthesia well with no apparent complications or complaints. The patient was escorted from the OR to the recovery room with vital signs stable and neurovascular structures intact to the patient's right lower extremity. The patient will be strictly nonweightbearing and will be admitted for a period of observation for pain control and physical therapy. The patient will follow up with Dr. Gutiérrez in the clinic within 1 week. María Linton DPM Bruno Gutiérrez DPM [email or web address]
== END 2018-07-07 14:55 | disposition home or self-care (01) ==
LOC: H.OPSURG 06:24 → H.MEDSURG1 12:11
DX: S82.851A Displaced trimalleolar fracture of right lower leg, initial encounter for closed fracture (principal); X58.XXXA Exposure to other specified factors, initial encounter; Y93.9 Activity, unspecified; Y92.9 Unspecified place or not applicable
CPT/HCPCS: 27823; 64445; 73610; 96361; 96372; 96374; 96376; 97161; C1713; C1769; G0378; G8978; G8979; J0690; J0694; J1650; J2250; J2270; J2704; J2765; J3010; J7120

== ENCOUNTER 2018-07-20 10:51 | Emergency (ER) | payer OTHER, SELFPAY ==
[2018-07-20 10:51] VITALS: BMI 35.4
[2018-07-20 10:56] VITALS: BP 124/84; PULSE 93; RESP 16; TEMP 98.3; O2SAT 100
--- NOTE | 2018-07-20 11:57 | RAD ---
PROCEDURE: Left Hand Radiographs. HISTORY: r/o fx COMPARISON: None. FINDINGS: BONES: No acute fracture or destructive bony lesion identified. JOINTS: Normal. No osteoarthritic changes. SOFT TISSUES: Questionable soft tissue edema without retained radiodense foreign body or emphysema soft tissue findings at the index and long fingers. OTHER FINDINGS: None. IMPRESSION: No acute fracture or dislocation left hand. Questionable soft tissue edema index and long fingers. Clinically correlate.
--- NOTE | 2018-07-20 12:26 | ED PDOC ---
Upper Extremity Pain/Injury Time Seen by Provider: 07/20/18 11:06 Chief Complaint (Nursing): Finger,Hand,&Wrist Chief Complaint (Provider): Hand Contusion History Per: Patient History/Exam Limitations: no limitations Onset/Duration Of Symptoms: Days (two) Current Symptoms Are (Timing): Still Present Quality: Aching Severity: Mild Exacerbating Factor(s): Nothing Additional Complaint(s): Pt presents to the ED with a complaint of a left finger swelling and aching following bumping his effected digits (two and three) on a door frame while attempting to maneuver on crutches following his foot surgery. Pt indicates a small blister at the CURING OVEN TENDER joint that occured following the trauma. Pt hand st rength in the left hand is 4/5 compared to his right hand of 5/5; the patient digits bilaterally remain neurolgically intact; there is no lacerations, abrasions and pt denies fever NVD Past Medical History Reviewed: Historical Data, Nursing Documentation, Vital Signs Vital Signs: Last Vital Signs Temp 98.3 F 07/20/18 10:54 Pulse 93 H 07/20/18 10:54 Resp 16 07/20/18 10:54 BP 124/84 07/20/18 10:54 Pulse Ox 100 07/20/18 10:54 - Medical History PMH: No Chronic Diseases, Fractures (right ankle) Denies: HIV, Chronic Kidney Disease - Family History Family History: States: Unknown Family Hx - Immunization History Hx Tetanus Toxoid Vaccination: No Hx Influenza Vaccination: No Hx Pneumococcal Vaccination: No - Home Medications Home Medications: Ambulatory Orders Medication Instructions Recorded Acetaminophen [Tylenol 325mg tab] 650 mg PO Q6 PRN 30 Days tab 07/07/18 Cephalexin [Keflex] 500 mg PO Q8 7 Days #21 cap 07/07/18 Docusate Sodium [Colace] 100 mg PO BID 5 Days #10 capsule 07/07/18 Enoxaparin [Lovenox] 40 mg SC DAILY #10 syr 07/07/18 oxyCODONE/Acetaminophen [Percocet 1 tab PO PRN PRN #40 tab 07/07/18 5/325 mg Tab] Diclofenac Potassium 50 mg PO BID #10 tablet 07/20/18 - Allergies Allergies/Adverse Reactions: Allergies Allergy/AdvReac Type Severity Reaction Status Date / Time No Known Allergies Allergy Verified 07/06/18 06:52 Review of Systems ROS Statement: Except As Marked, All Systems Reviewed And Found Negative Musculoskeletal: Positive for: Hand Pain Physical Exam - Reviewed Nursing Documentation Reviewed: Yes Vital Signs Reviewed: Yes - Physical Exam Appears: Positive for: Well, Non-toxic, No Acute Distress. Negative for: Uncomfortable Head Exam: Positive for: ATRAUMATIC, NORMAL INSPECTION Skin: Positive for: Normal Color, Warm, Dry. Negative for: Diaphoresis Eye Exam: Positive for: Normal appearance ENT: Positive for: Normal ENT Inspection Neck: Positive for: Normal, Painless ROM, Supple. Negative for: Decreased ROM Cardiovascular/Chest: Positive for: Regular Rate, Rhythm Respiratory: Positive for: Normal Breath Sounds Pulses-Carotid (L): 2+ Pulses-Carotid (R): 2+ Pulses-Radial (L): 2+ Pulses-Radial (R): 2+ Extremity: Positive for: Tenderness, Capillary Refill (<2 seconds), Swelling (mild swelling to effected digits of 2 and 3 on left hand). Negative for: Deformity Neurologic/Psych: Positive for: Alert, Oriented - ECG O2 Sat by Pulse Oximetry: 100 Medical Decision Making Medical Decision Making: R/O fx or dislocation Left hand xray IMPRESSION: No acute fracture or dislocation left hand. Questionable soft tissue edema index and long fingers. Clinically correlate. Pt was advised that at this time there is no evidence of fracture or neurovascular deficit and that ecchymosis may take days to a week to go away. They were advised that worsening or new symptoms would require reevaluation in the ED or with the referral physician. Disposition - Clinical Impression Clinical Impression: Contusion - Patient ED Disposition Is Patient to be Admitted: No Doctor Will See Patient In The: Office Counseled Patient/Family Regarding: Diagnosis, Need For Followup, Rx Given - Disposition Referrals: Bruno Gutiérrez MD [Primary Care Provider] - Disposition: Routine/Home Disposition Time: 12:59 Condition: STABLE Prescriptions: Diclofenac Potassium 50 mg PO BID #10 tablet Instructions: Taking Care of Bruises, Contusion (DC) Forms: [facility] ([place])
== END 2018-07-20 13:18 | disposition home or self-care (01) ==
LOC: H.ER 10:51 → SUPCPDRO 10:51 → H.ER 13:18
DX: S60.00XA Contusion of unspecified finger without damage to nail, initial encounter (principal); W22.09XA Striking against other stationary object, initial encounter